=== PATIENT | male | born 1955 | race Caucasian/White ===

== ENCOUNTER → 2021-09-11 | Outpatient (CLI) | payer OTHER ==
--- NOTE | 2021-09-11 14:27 | CT ---
EXAMINATION TYPE: CT brain wo con DATE OF EXAM: 09/11/2021 COMPARISON: None HISTORY: dizziness CT DLP: 1090.4 mGycm Automated exposure control for dose reduction was used. Helical imaging through the brain. FINDINGS: Cerebral vascular calcifications are present. There is no hemorrhage or hydrocephalus. Cortical atrop hy is present. White matter low-attenuation is suspected the periventricular locations. The orbits sh ow symmetric appearance. IMPRESSION: NO ACUTE ABNORMALITY. AGE-RELATED CHANGES OF ATROPHY AND POSSIBLE CHRONIC SMALL VESSEL ISCHEMIA
--- NOTE | 2021-09-11 15:27 | US ---
EXAMINATION TYPE: US carotid duplex BILAT DATE OF EXAM: 09/11/2021 COMPARISON: NONE CLINICAL HISTORY: R42 dizziness. dizziness, no h/o stroke, obese patient, smoker, very difficult to i mage EXAM MEASUREMENTS: RIGHT: Peak Systolic Velocity (PSV) cm/sec ----- Right CCA: 65.5 ----- Right ICA: no flow detected ----- Right ECA: 74.7 ICA/CCA ratio: N/A RIGHT: End Diastole cm/sec ----- Right CCA: 3.8 ----- Right ICA: no flow detected ----- Right ECA: 6.0 LEFT: Peak Systolic Velocity (PSV) cm/sec ----- Left CCA: 57.1 ----- Left ICA: 88.2 ----- Left ECA: 99.2 ICA/CCA ratio: 1.5 LEFT: End Diastole cm/sec ----- Left CCA: 5.9 ----- Left ICA: 13.6 ----- Left ECA: 9.2 VERTEBRALS (direction of flow): Right Vertebral: not seen Left Vertebral: not seen Rhythm: Normal Very difficult patient to assess, thick neck, obese, smoker and was heavy breathing during exam sit ting slightly upright Unable to detected any flow within right ICA after multiple doppler attempts, otherwise no significan t stenosis seen. Unable to visualize either vertebral due to patients heavy breathing and thick neck IMPRESSION: 1. Right internal carotid artery appears obstructed. No color flow or velocity measurements are ident ified. Recommend CTA neck for additional evaluation. 2. Left internal carotid artery patent without significant flow-limiting stenosis. Criteria for Assigning % of Stenosis / Diameter reduction (Estimation based on the indirect measurements of the internal carotid artery velocities (ICA PSV). 1. Normal (no stenosis)=ICA PSV < 125 cm/s: ratio < 2.0: ICA EDV<40 cm/s. 2. Less than 50% stenosis=ICA PSV < 125 cm/s: ratio < 2.0: ICA EDV<40 cm/s. 3. 50 to 69% stenosis=ICA PSV of 125 to 230 cm/s: ration 2.0 ? 4.0: ICA EDV 40-100 cm/s. 4. Greater than 70% stenosis to near occlusion= ICA PSV > 230 cm/s: ratio > 4.0: ICA EDV > 100 cm/s. 5. Near occlusion= ICA PSV velocities may be low or undetectable: variable ratio and ICA EDV. 6. Total occlusion=unable to detect flow. A Red level critical message alert has been initiated for ARAVIND Lindsay via the [facility] Critical Results System on 09/11/2021 3:24 PM. This message alert has been sent to ARAVIND Lindsay v ia the preferences provided by the clinician for the receipt of Radiology Critical Findings. Message ID [id number].
== END | disposition home or self-care (01) ==
LOC: RADCTMAIN 13:33
DX: I65.21 Occlusion and stenosis of right carotid artery (principal); R42 Dizziness and giddiness
CPT/HCPCS: 70450; 93880